=== PATIENT | male | born 1975 | race Caucasian/White ===

== ENCOUNTER → 2017-12-11 | Outpatient (CLI) | payer BC ==
--- NOTE | 2017-12-11 17:36 | XR ---
EXAMINATION TYPE: XR skull complete DATE OF EXAM: 12/11/2017 COMPARISON: NONE HISTORY: There is surgery. Possible foreign body. TECHNIQUE: 4 views FINDINGS: Calvarium is intact with normal vascular and suture markings. I see no evidence of radiopaq ue foreign body. IMPRESSION: Normal exam. No foreign body seen.
== END | disposition home or self-care (01) ==
LOC: RADXRMAIN 16:54
PROVIDERS: ATTEND Orthopaedic Surgery Sports Medicine
DX: Z03.89 Encounter for observation for other suspected diseases and conditions ruled out (principal); Z98.890 Other specified postprocedural states
CPT/HCPCS: 70260

== ENCOUNTER → 2024-09-21 | Outpatient (CLI) | payer BC ==
--- NOTE | 2024-09-21 08:21 | US ---
EXAMINATION TYPE: US abdomen complete DATE OF EXAM: 09/21/2024 COMPARISON: NONE CLINICAL INDICATION: Male, 48 years old with history of R74.01 ELEVATION OF LEVELS OF LIVER TRANSAMIN ASE L; Elevated liver enzymes. Hx appendectomy. TECHNIQUE: Grayscale and color Doppler imaging of the abdomen was performed. FINDINGS: EXAM MEASUREMENTS: Liver Length: 15.0 cm Gallbladder Wall: 0.26 cm CBD: Obscured Spleen: 10.7 cm Right Kidney: 10.5 x 5.8 x 7.0 cm Left Kidney: 11.1 x 6.6 x 6.3 cm [employer] NOTES: Exam is limited due to gas. Pancreas: Hyperechoic. Head and tail not seen. Liver: Indistinct, hypoechoic tissue seen right lobe: 7.5 x 7.0 x 4.4 cm. Complex area seen right lobe: 4.1 x 4.3 x 4.0 cm. Liver tissue appears hyperechoic with increased attenuation. Gallbladder: Limited due to gas, no abnormalities seen. Evidence for sonographic Solis's sign: No CBD: Obscured Spleen: wnl Right Kidney: wnl, No hydronephrosis, calculi or masses seen Left Kidney: Hypoechoic area seen medially: 2.6 x 2.3 x 1.6 cm. ?Question possible dilated renal pel vis. Upper IVC: Not well seen Abd Aorta: Iliacs and portion of mid aorta were obscured. IMPRESSION: 1. Findings suggestive of underlying hepatocellular disease or hepatic steatosis. Complex appearing a adolfo within the liver measuring 4.3 cm and indistinct hypoechoic area measuring 7.[address] scan of the abdomen is recommended for further evaluation. 2. Small parapelvic cysts versus mild pelvocaliectasis. [facility], , 09/21/2024 8:18 AM
== END | disposition home or self-care (01) ==
LOC: RADUSWWP 07:36
PROVIDERS: ATTEND Family Medicine
DX: R74.01 Elevation of levels of liver transaminase levels (principal); Z90.49 Acquired absence of other specified parts of digestive tract
CPT/HCPCS: 76700

== ENCOUNTER → 2024-09-22 | Outpatient (CLI) | payer BC ==
--- NOTE | 2024-09-22 11:12 | CT ---
EXAMINATION TYPE: CT abdomen w con DATE OF EXAM: 09/22/2024 9:55 AM COMPARISON: CT abdomen pelvis most recent from CLINICAL INDICATION: Male, 48 years old with history of R16.0 HEPATOMEGALY, NOT ELSEWHERE CLASSIFIED; Elevated liver enzymes TECHNIQUE: Axial CT abdomen w con;Sagittal and coronal reformats were created on a separate workstat ion. Contrast used:100 mL of Isovue 300 with IV Contrast, (none if empty) Oral contrast used: with Oral Contrast (none if empty) CT DLP: 1419.1 mGycm, Automated exposure control for dose reduction was used. FINDINGS: LOWER CHEST: Unremarkable ABDOMEN LIVER: Scattered simple appearing probable hepatic cysts. Liver measures up to 14.4 cm in caudocrania l dimension. No suspicious solid masses or ductal dilation identified. GALLBLADDER AND BILE DUCTS: Unremarkable. PANCREAS: Unremarkable. SPLEEN: Unremarkable. ADRENAL GLANDS: Unremarkable. KIDNEYS AND URETERS: No evidence of hydronephrosis or renal calculus. The ureters are unremarkable. PELVIS BLADDER: No evidence for wall thickening or mass given limitations of exam. REPRODUCTIVE: Unremarkable. ABDOMEN & PELVIS STOMACH AND BOWEL: No evidence of bowel obstruction. PERITONEUM/RETROPERITONEUM: No evidence of pneumoperitoneum or free fluid. VASCULATURE: No evidence of aortic aneurysm. MUSCULOSKELETAL: No acute osseous abnormalities LYMPH NODES: No gross evidence for lymphadenopathy. SOFT TISSUE/ABDOMINAL WALL: Unremarkable IMPRESSION: 1. No evidence for acute process.r 2. Few scattered simple appearing hepatic cysts. [facility], , 09/22/2024 11:09 AM
== END | disposition home or self-care (01) ==
LOC: RADCTMAIN 08:47
PROVIDERS: ATTEND Family Medicine
DX: R16.0 Hepatomegaly, not elsewhere classified (principal); K76.89 Other specified diseases of liver
CPT/HCPCS: 74160; Q9967

== ENCOUNTER 2024-10-27 10:04 | Day surgery (SDC) | payer BC ==
[2024-10-27] MEDS: LACTATED RINGERS 1,000 ML IV SCH (11:12)
[2024-10-27] MEDS: IV FLUID CONTINUATION 1,000 ML IV ONE (11:13)
[2024-10-27 11:15] VITALS: TEMP 98.1
[2024-10-27] MEDS ORDERED: PROPOFOL 10 MG/ML 20 ML VIAL IV ONE (11:47)
--- NOTE | 2024-10-27 12:02 | P.PCN ---
Date of Procedure: 10/27/24 Procedure(s) Performed: BRIEF HISTORY: Patient is a 48-year-old pleasant white male scheduled for an elective colonoscopy as a part of screening for colon cancer and family of colon cancer. His dad was kind of diagnosed with colon cancer at age 65. PROCEDURE PERFORMED: Colonoscopy snare polypectomy. PREOPERATIVE DIAGNOSIS: Screening for colon cancer/family history of colon cancer. IV sedation per Anesthesia. PROCEDURE: After informed consent was obtained, the patient, was brought into the endoscopy unit. IV sedation was administered by Anesthesia under continuous monitoring. Digital rectal examination was normal. Initially the Olympus CF-160 flexible video colonoscope was then inserted in the rectum, gradually advanced into the cecum without any difficulty. Careful examination was performed as the scope was gradually being withdrawn. Ileocecal valve and the appendiceal orifice were visualized and appeared normal. Prep was excellent. Mucosa of the cecum, millimeter polyp that was removed by cold snare polypectomy. In the hepatic flexure there was a 6 mm polyp removed by cold snare polypectomy. Rest of the ascending colon, transverse colon, descending colon normal. In the sigmoid colon there was a 4 mm polyp removed by cold snare polypectomy. Rest of the, sigmoid colon, and rectum appeared normal. Retroflexion was performed in the rectum and no lesions were seen. The patient tolerated the procedure well. IMPRESSION: 5 mm cecal polyp status post cold snare polypectomy 6 mm hepatic flexure polyp status post polypectomy 4 mm sigmoid colon polyp status post snare polypectomy RECOMMENDATIONS: Findings of this examination were discussed with the patient as well as his family. He was advised to follow with the biopsy results. If the biopsy reveals adenoma he can have repeat colonoscopy 3 years.
[2024-10-27 12:30] VITALS: BP 135/94; PULSE 92; RESP 18
== END 2024-10-27 12:42 | disposition home or self-care (01) ==
LOC: ORWHC2ENDO 10:04
PROVIDERS: ATTEND Internal Medicine Gastroenterology
DX: Z12.11 Encounter for screening for malignant neoplasm of colon (principal); D12.3 Benign neoplasm of transverse colon; D12.5 Benign neoplasm of sigmoid colon; K63.5 Polyp of colon; Z80.0 Family history of malignant neoplasm of digestive organs; K21.9 Gastro-esophageal reflux disease without esophagitis; Z90.89 Acquired absence of other organs; Z90.49 Acquired absence of other specified parts of digestive tract; Z98.890 Other specified postprocedural states
CPT/HCPCS: 45385; J2704; 88305